=== PATIENT | male | born 1940 | race Caucasian/White ===

== ENCOUNTER 2017-08-18 13:03 | Emergency (ER) | payer MEDICARE, BC ==
[2017-08-18] MEDS ORDERED: Nitroglycerin 0.4 MG Tab.SL SL ONE (13:46)
[2017-08-18 14:16] VITALS: BP 129/78
--- NOTE | 2017-08-18 14:27 | CR ---
Chest 1V Frontal INDICATION: chest pain FINDINGS: Negative AP portable chest x-ray.
[2017-08-18] MEDS ORDERED: Ketorolac 60 MG/2 ML SDV IM ONE (15:14)
--- NOTE | 2017-08-18 15:21 | EDM.PDOC ---
ED HPI GENERAL MEDICAL PROBLEM - General Chief Complaint: Chest Pain Stated Complaint: CHEST PAIN Time Seen by Provider: 08/18/17 13:15 Source of Information: Reports: Patient History Limitations: Reports: No Limitations - History of Present Illness INITIAL COMMENTS - FREE TEXT/NARRATIVE: PT ARRIVED WITH PAIN IN LEFT UPPER CHEST WHICH JUST STARTED TODAY. HE HAS NOT HAD ANY EPISODES OF BEING SWEATY. hE DOES NOT HAVE A HISTORY OF HEART DISEASE. Onset: Today, Other ( STARTED WHEN HE GOT UP THIS AM. ) Duration: Hour(s): Location: Reports: Chest Associated Symptoms: Reports: No Other Symptoms, Chest Pain Chest Pain Score (Numeric/FACES): 3 - Related Data Allergies Allergy/AdvReac Type Severity Reaction Status Date / Time No Known Allergies Allergy Verified 10/27/13 11:18 Home Meds: Home Meds Aspirin [Low Dose Aspirin EC] 81 mg PO DAILY 10/29/13 [History] Multivitamin [Multi-Vitamin Daily] 1 tab PO DAILY 01/28/16 [History] Past Medical History HEENT History: Reports: Cataract Dermatologic History: Reports: Other (See Below) Other Dermatologic History: precancerous issues removed from nose and top of head - Past Surgical History HEENT Surgical History: Reports: Eye Surgery Other HEENT Surgeries/Procedures: cataract surgery Social & Family History - Family History Family Medical History: Noncontributory - Tobacco Use Smoking Status *Q: Former Smoker Years of Tobacco use: 15 Packs/Tins Daily: 1 Used Tobacco, but Quit: Yes Month Tobacco Last Used: december Tobacco Use Comment: quit 1979 Second Hand Smoke Exposure: No - Caffeine Use Caffeine Use: Reports: Coffee Other Caffeine Use: 2 cups aday - Alcohol Use Days Per Week of Alcohol Use: 6 Number of Drinks Per Day: 2 Total Drinks Per Week: 12 - Recreational Drug Use Recreational Drug Use: No ED ROS GENERAL - Review of Systems Review Of Systems: See Below Constitutional: Reports: No Symptoms HEENT: Reports: No Symptoms Respiratory: Reports: Other (HE FEELS LIKE THE CHEST PAIN GETS WORSE WHEN HE TAKES A DEEP BREATH OR MOVES. ) Cardiovascular: Reports: Chest Pain, Other ( pT HAS NOT GOTTEN SWEATY.) Endocrine: Reports: No Symptoms GI/Abdominal: Reports: No Symptoms : Reports: No Symptoms Musculoskeletal: Reports: No Symptoms Skin: Reports: No Symptoms ED EXAM, GENERAL - Physical Exam Exam: See Below Free Text/Narrative:: pT ARRIVED WITH PAIN IN THE LEFT UPPER CHEST. 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 hE STATES THIS STARTED WITHOUT INJURY THIS AM. Exam Limited By: No Limitations General Appearance: Alert, Mild Distress Ears: Normal TMs Nose: Normal Inspection Throat/Mouth: Normal Inspection Neck: Normal Inspection Respiratory/Chest: No Respiratory Distress Cardiovascular: Regular Rate, Rhythm, Other (PT IS TENDER TO PALPATE OVER THE LEFT UPPER CHEST. THERE IS NO SWELLING OR BRUISING IN THE AREA. ) GI/Abdominal: Soft, Non-Tender (Male) Exam: Deferred Rectal (Males) Exam: Deferred Back Exam: Normal Inspection Extremities: Normal Inspection Neurological: Alert, Oriented, Normal Cognition Psychiatric: Normal Affect Course - Vital Signs Last Recorded V/S: Last Vital Signs Temp 35.8 C 08/18/17 13:11 Pulse 68 08/18/17 13:11 Resp 14 08/18/17 13:11 BP 129/78 08/18/17 14:16 Pulse Ox 97 08/18/17 13:11 - Orders/Labs/Meds Orders: Active Orders 24 hr Category Date Time Status EKG Documentation Completion [RC] ASDIRECTED Care 08/18/17 13:38 Active EKG 12 Lead [EK] Routine Ther 08/18/17 13:37 Ordered Labs: Laboratory Tests 08/18/17 08/18/17 08/18/17 Range/Units 13:48 13:48 13:48 WBC 7.3 (4.5-11.0) K/uL RBC 4.77 (4.30-5.90) M/uL Hgb 14.2 (12.0-15.0) g/dL Hct 42.1 (40.0-54.0) % MCV 88 (80-98) fL MCH 30 (27-31) pg MCHC 34 (32-36) % Plt Count 183 (150-400) K/uL Neut % (Auto) 64 (36-66) % Lymph % (Auto) 21 L (24-44) % [place] % (Auto) 11 H (2-6) % Eos % (Auto) 3 (2-4) % Baso % (Auto) 1 (0-1) % Sodium 144 (140-148) mmol/L Potassium 4.2 (3.6-5.2) mmol/L Chloride 108 (100-108) mmol/L Carbon Dioxide 26 (21-32) mmol/L Anion Gap 9.9 (5.0-14.0) mmol/L BUN 15 (7-18) mg/dL Creatinine 1.0 (0.8-1.3) mg/dL Est Cr Clr Drug Dosing 66.93 mL/min Estimated GFR (MDRD) > 60 (>60) Glucose 100 (74-106) mg/dL Calcium 8.7 (8.5-10.1) mg/dL Total Bilirubin 0.2 (0.2-1.0) mg/dL AST 18 (15-37) U/L ALT 25 (12-78) U/L Alkaline Phosphatase 79 (46-116) U/L Creatine Kinase 88 (39-308) U/L Troponin I < 0.017 (0.000-0.056) ng/mL Total Protein 6.5 (6.4-8.2) g/dL Albumin 3.4 (3.4-5.0) g/dL Globulin 3.1 (2.3-3.5) g/dL Albumin/Globulin Ratio 1.1 L (1.2-2.2) Urine Color Urine Appearance Urine pH (4.5-8.0) Ur Specific [place] (1.008-1.030) Urine Protein (NEGATIVE) mg/dL Urine Glucose (UA) (NEGATIVE) mg/dL Urine Ketones (NEGATIVE) mg/dL Urine Occult Blood (NEGATIVE) Urine Nitrite (NEGAITVE) Urine Bilirubin (NEGATIVE) Urine Urobilinogen (NORMAL) mg/dL Ur Leukocyte Esterase (NEGATIVE) Urine RBC (0-5) Urine WBC (0-5) Ur Epithelial Cells Amorphous Sediment Urine Bacteria Urine Mucus 08/18/17 Range/Units 14:52 WBC (4.5-11.0) K/uL RBC (4.30-5.90) M/uL Hgb (12.0-15.0) g/dL Hct (40.0-54.0) % MCV (80-98) fL MCH (27-31) pg MCHC (32-36) % Plt Count (150-400) K/uL Neut % (Auto) (36-66) % Lymph % (Auto) (24-44) % [place] % (Auto) (2-6) % Eos % (Auto) (2-4) % Baso % (Auto) (0-1) % Sodium (140-148) mmol/L Potassium (3.6-5.2) mmol/L Chloride (100-108) mmol/L Carbon Dioxide (21-32) mmol/L Anion Gap (5.0-14.0) mmol/L BUN (7-18) mg/dL Creatinine (0.8-1.3) mg/dL Est Cr Clr Drug Dosing mL/min Estimated GFR (MDRD) (>60) Glucose (74-106) mg/dL Calcium (8.5-10.1) mg/dL Total Bilirubin (0.2-1.0) mg/dL AST (15-37) U/L ALT (12-78) U/L Alkaline Phosphatase (46-116) U/L Creatine Kinase (39-308) U/L Troponin I (0.000-0.056) ng/mL Total Protein (6.4-8.2) g/dL Albumin (3.4-5.0) g/dL Globulin (2.3-3.5) g/dL Albumin/Globulin Ratio (1.2-2.2) Urine Color Yellow Urine Appearance Clear Urine pH 5.0 (4.5-8.0) Ur Specific [place] 1.010 (1.008-1.030) Urine Protein Negative (NEGATIVE) mg/dL Urine Glucose (UA) Normal (NEGATIVE) mg/dL Urine Ketones Negative (NEGATIVE) mg/dL Urine Occult Blood Negative (NEGATIVE) Urine Nitrite Negative (NEGAITVE) Urine Bilirubin Negative (NEGATIVE) Urine Urobilinogen Normal (NORMAL) mg/dL Ur Leukocyte Esterase Negative (NEGATIVE) Urine RBC 0-5 (0-5) Urine WBC 0-5 (0-5) Ur Epithelial Cells Rare Amorphous Sediment Not seen Urine Bacteria Not seen Urine Mucus Not seen Meds: Medications Discontinued Medications Generic Name Dose Route Start Last Admin Trade Name Freq PRN Reason Stop Dose Admin Ketorolac Tromethamine 60 mg 08/18/17 15:14 08/18/17 15:23 Toradol IM 08/18/17 15:15 60 mg ONETIME ONE Administration Nitroglycerin 0.4 mg 08/18/17 13:46 08/18/17 14:06 Nitrostat SL 08/18/17 13:47 0.4 mg ONETIME ONE Administration - Re-Assessments/Exams Free Text/Narrative Re-Assessment/Exam: 08/18/17 15:29 CHEST XRAY WAS NORMAL, HIS TROP WAS NORMAL. hE HAS LOCALIZED CHEST WALL PAIN. hE WAS GIVEN TORODOL 60MG IM . hE WAS TRIED ON NITRO AND THIS DID NOT GIVE RELIEV. hE DID TAKE 2 ADULT ASA AT HOME PRIOR TO ARRIVAL. Departure - Departure Time of Disposition: 15:19 Disposition: Home, Self-Care 01 Condition: Fair Clinical Impression: Chest wall pain Instructions: Chest Wall Pain, [id number] Referrals: PCP,None [Primary Care Provider] - Forms: ED Department Discharge Care Plan Goals: HEAT TO ANT CHEST OVER THE SITe OF DISCOMFORT, MOTRIN 400MG-600MG TID FOR CHEST WALL PAIN. RTC IF ANY PROBLEMS. - My Orders Last 24 Hours: My Active Orders 08/18/17 13:37 EKG 12 Lead [EK] Routine 08/18/17 13:38 EKG Documentation Completion [RC] ASDIRECTED - Assessment/Plan Last 24 Hours: My Active Orders 08/18/17 13:37 EKG 12 Lead [EK] Routine 08/18/17 13:38 EKG Documentation Completion [RC] ASDIRECTED
== END 2017-08-18 15:43 | disposition home or self-care (01) ==
LOC: JP.ED 13:03
DX: R07.89 Other chest pain (principal); Z87.891 Personal history of nicotine dependence; Z79.82 Long term (current) use of aspirin
CPT/HCPCS: 36415; 71045; 80053; 81001; 82550; 84484; 85025; 93005; 93010; 96372; 99285; A9270; J1885; 99283

== ENCOUNTER 2024-12-17 15:22 | Emergency (ER) | payer OTHER, MEDICARE, BC ==
[2024-12-17 15:36] VITALS: BP 130/62; PULSE 68
[2024-12-17] MEDS: fentaNYL 100 MCG/2 ML SDV IM ONE (16:01)
[2024-12-17] MEDS: Bacitracin Oint 1 GM U/D Packet TOP ONE (16:53)
== END 2024-12-17 17:04 | disposition home or self-care (01) ==
LOC: JP.ED 15:22
DX: S00.01XA Abrasion of scalp, initial encounter (principal); Z79.82 Long term (current) use of aspirin; Z79.899 Other long term (current) drug therapy; V87.7XXA Person injured in collision between other specified motor vehicles (traffic), initial encounter
CPT/HCPCS: 70450; 70486; 72125; 76377; 96372; 99283; 99284; J3010